=== PATIENT | male | born 1970 | race Caucasian/White ===

== ENCOUNTER 2019-02-01 07:05 | Day surgery (SDC) | payer BC, OTHER ==
[2019-02-01 07:40] VITALS: BMI 30.4
[2019-02-01 08:50] VITALS: TEMP 98.5
[2019-02-01 13:23] VITALS: BP 134/75; PULSE 60
--- NOTE | 2019-02-02 14:23 | PATH ---
Surgical Pathology Report Patient Name: RAFAELA LAKHANI [facility]. Rec. #: [id number] /Age/Gender: 1970 (Age: 48) / M Account: [id number] Location: U-ENDOSCOPY Taken: 02/01/2019 Received: 02/01/2019 Reported: 02/02/2019 Physicians: Navjot Merlos D.O. Specimen(s) Received A: CECAL POLYP B: RIGHT COLON POLYP C: POLYP SIGMOID Clinical History Family history of colon cancer, polyps Postoperative diagnosis: Hemorrhoids, colon polyps Final Diagnosis A. CECAL POLYP, BIOPSY: TUBULAR ADENOMA. B. COLON, RIGHT, POLYP, BIOPSY: TUBULAR ADENOMA. C. SIGMOID COLON, POLYP, BIOPSY: POLYPOID COLONIC MUCOSA WITH PROMINENT LYMPHOID AGGREGATE AND SUPERFICIAL HYPERPLASTIC FEATURES. Electronically Signed Jackie Sarkar M.D. Gross Description A. Received in formalin, labeled "biopsy cecal polyp" is a arellano, irregular portion of soft tissue measuring 0.2 cm. in greatest dimension. The specimen is submitted in toto in one cassette. B. Received in formalin, labeled "biopsy right colon polyp" is a arellano, irregular portion of soft tissue measuring 0.2 cm. in greatest dimension. The specimen is submitted in toto in one cassette. C. Received in formalin, labeled "biopsy sigmoid polyp" are 2 arellano, irregular portions of soft tissue measuring 0.1 and 0.4 cm. in greatest dimension. The specimens are submitted in toto in one cassette. DL/02/01/2019 saudi02/01/2019
== END 2019-02-01 09:55 | disposition home or self-care (01) ==
LOC: JASU-ENDO 07:05
PROVIDERS: ATTEND Internal Medicine Gastroenterology
PROC: 0DBN8ZX Excision of Sigmoid Colon, Via Natural or Artificial Opening Endoscopic, Diagnostic (ICD-10-PCS; 2019-02-01)
PROC: 0DBF8ZX Excision of Right Large Intestine, Via Natural or Artificial Opening Endoscopic, Diagnostic (ICD-10-PCS; 2019-02-01)
PROC: 0DBH8ZX Excision of Cecum, Via Natural or Artificial Opening Endoscopic, Diagnostic (ICD-10-PCS; principal; 2019-02-01 08:15)
DX: Z12.11 Encounter for screening for malignant neoplasm of colon (principal); Z86.010 Personal history of colon polyps; K64.8 Other hemorrhoids; D12.0 Benign neoplasm of cecum; D12.5 Benign neoplasm of sigmoid colon
CPT/HCPCS: 88305-TC

== ENCOUNTER 2022-01-12 04:50 | Day surgery (SDC) | payer BC, OTHER ==
[2022-01-08 12:05] VITALS: BMI 30.7
[2022-01-12 08:48] VITALS: TEMP 97.8
[2022-01-12 09:06] VITALS: PULSE 50
[2022-01-12 09:21] VITALS: BP 140/82; RESP 14
== END 2022-01-12 09:45 | disposition home or self-care (01) ==
LOC: JASU-ENDO 04:50
PROVIDERS: ATTEND Internal Medicine Gastroenterology
PROC: 0DBN8ZX Excision of Sigmoid Colon, Via Natural or Artificial Opening Endoscopic, Diagnostic (ICD-10-PCS; 2022-01-12)
PROC: 0DBF8ZX Excision of Right Large Intestine, Via Natural or Artificial Opening Endoscopic, Diagnostic (ICD-10-PCS; principal; 2022-01-12 08:00)
DX: Z12.11 Encounter for screening for malignant neoplasm of colon (principal); Z86.010 Personal history of colon polyps; D12.2 Benign neoplasm of ascending colon; D12.7 Benign neoplasm of rectosigmoid junction; K64.8 Other hemorrhoids; K63.89 Other specified diseases of intestine
CPT/HCPCS: 88305-TC